=== PATIENT | male | born 1955 | race Caucasian/White ===

== ENCOUNTER 2017-07-08 11:36 | Emergency (ER) | payer SELFPAY ==
[~2017-07-08] VITALS: Ht 177.8 cm; Wt 90.5 kg
[2017-07-08 11:38] VITALS: BP 166/100; PULSE 102; RESP 20; TEMP 98.6; O2SAT 96
--- NOTE | 2017-07-08 12:49 | RADRPT ---
EXAM DATE/TIME: 07/08/2017 12:19 [facility] COMPARISON: No previous studies available for comparison. INDICATIONS : Fell on 05/06/18 , entire right hand appears swollen and bruised, pain 2nd, 3rd, 4th metacarpals MEDICAL HISTORY : None. SURGICAL HISTORY : None. ENCOUNTER: Initial ACUITY: 2 days PAIN SCORE: 9/10 LOCATION: Right hand and wrist FINDINGS: Three view examination of the right hand demonstrates no soft tissue swelling, dislocation, or fractu re. The carpal bones appear intact. The interphalangeal and metacarpophalangeal joints are intact. Bony mineralization is normal. CONCLUSION: Unremarkable examination of the right hand. There is a small cortical bump along the radial edge of t he scaphoid waist but I cannot confirm a fracture on either of the other 2 images. Tee Barth MD on July 08, 2017 at 12:39 Board Certified Radiologist. This report was verified electronically.
--- NOTE | 2017-07-08 12:50 | RADRPT ---
EXAM DATE/TIME: 07/08/2017 12:21 [facility] COMPARISON: No previous studies available for comparison. INDICATIONS : Fell on 05/06/18 , entire right hand and wrist appears swollen and bruised, pain 360 degrees around w rist MEDICAL HISTORY : None. SURGICAL HISTORY : None. ENCOUNTER: Initial ACUITY: 2 days PAIN SCORE: 9/10 LOCATION: Right hand and wrist FINDINGS: Three view examination of the right wrist demonstrates abnormal lucency along the base of the hook of the hamate could be fractured. It is nondisplaced. The rest of bones are unremarkable.. The carpal bones are in normal alignment. The joint spaces are maintained. Bony mineralization is normal. CONCLUSION: Question of a hairline fracture along the base of the hamate. Tee Barth MD on July 08, 2017 at 12:46 Board Certified Radiologist. This report was verified electronically.
--- NOTE | 2017-07-08 13:10 | PD ---
HPI Chief Complaint: Fall Time Seen by Provider: 12:19 Travel History International Travel<30 days: No Contact w/Intl Traveler<30days: No Traveled to known affect area: No History of Present Illness HPI 62-year-old male here with right hand and wrist pain. Patient fell 3 days ago after tripping on uneven steph. He denies head injury or loss of consciousness. He denies paresthesia or weakness of the extremity. He has pain with flexion and extension of the wrist. He has abrasions to the left knee without knee pain. Symptom severity is moderate. PFSH Past Medical History Medical History: Denies Significant Hx Social History Tobacco Use: No Allergies-Medications (Allergen,Severity, Reaction): Coded Allergies: No Known Allergies (Unverified , 07/08/17) Review of Systems Except as stated in HPI: all other systems reviewed are Neg General / Constitutional: No: Fever Eyes: No: Visual changes HENT: No: Headaches Cardiovascular: No: Chest Pain or Discomfort Respiratory: No: Shortness of Breath Gastrointestinal: No: Abdominal Pain Genitourinary: No: Dysuria Musculoskeletal: No: Pain Skin: Positive Other (abrasion left knee, right forehead), No Rash Neurologic: No: Weakness Physical Exam Narrative GENERAL: Alert well-appearing male. No distress. SKIN: Warm and dry. Abrasion to the left knee, right hand, HEAD: Normocephalic. No hematoma. Small abrasion to the right forehead EYES: Pupils equal, round, react to light.. No injection or drainage. NECK: Supple, trachea midline. No cervical midline tenderness. CARDIOVASCULAR: Regular rate and rhythm without murmurs, gallops, or rubs. Chest wall tenderness. RESPIRATORY: Breath sounds equal bilaterally. No accessory muscle use. GASTROINTESTINAL: Abdomen soft, non-tender, nondistended. MUSCULOSKELETAL: No cyanosis, or edema. Abrasion to the left knee. Right hand mildly edematous with tenderness over the dorsal aspect. No deformity. Patient is able to flex and extend all 5 digits. Normal sensation. Brisk cap refill. Data Data Last Documented VS Vital Signs Date Time Temp Pulse Resp B/P (MAP) Pulse Ox O2 Delivery O2 Flow Rate FiO2 07/08/17 11:38 98.6 102 20 166/100 (122) 96 Room Air Orders Orders Wrist, Complete ([id number]) (07/08/17 ) Hand, Complete ([id number]) (07/08/17 ) Splinting (07/08/17 ) Radiology Film Requests (07/08/17 ) Tetanus/Diphtheria Tox Adult (Tetanus/Di (07/08/17 13:30) MDM Medical Decision Making Medical Screen Exam Complete: Yes Emergency Medical Condition: Yes Differential Diagnosis Contusion, sprain, fracture Narrative Course 62-year-old male here with right hand and wrist pain after fall 3 days ago. The extremity is neurovascularly intact. X-rays questionable hairline fracture of the hamate. Patient splinted. Patient to follow-up with orthopedic doctor. Diagnosis Primary Impression: Contusion of right hand Qualified Codes: S60.221A - Contusion of right hand, initial encounter Additional Impression: Fracture of body of hamate Qualified Codes: S62.144A - Nondisplaced fracture of body of hamate [unciform ] bone, right wrist, initial encounter for closed fracture Referrals: Primary Care Physician Additional Instructions: Wear splint until follow-up with orthopedic doctor. Ice and elevate the extremity. Take [id number] ibuprofen 800 mg as needed for pain. Follow-up with her doctor. Disposition: 01 DISCHARGE HOME Condition: Stable Ana Maria John Jul 08, 2017 13:10
[2017-07-08] MEDS ORDERED: TETANUS/DIPHTHERIA TOXOID ADULT 0.5 ML VIAL IM ONE (13:30)
== END 2017-07-08 14:18 | disposition home or self-care (01) ==
LOC: NEPK 11:36
DX: S60.221A Contusion of right hand, initial encounter (principal); S80.212A Abrasion, left knee, initial encounter; W01.0XXA Fall on same level from slipping, tripping and stumbling without subsequent striking against object, initial encounter
CPT/HCPCS: 29125; 73110; 73130; 90471; 90714